=== PATIENT | female | born 1955 ===

== ENCOUNTER 2017-04-27 05:18 | Inpatient (IN) | payer OTHER ==
[~2017-04-27] VITALS: Ht 154.9 cm; Wt 63.5 kg
[2017-04-27] VITALS (16 sets, daily range): BP systolic 106–154; BP diastolic 65–90
[~2017-04-27 05:18] MED LIST: CYCLOBENZAPRINE10 MG ORAL; IBUPROFEN800 M1 PO; LISINOPRIL20 MG ORAL; OMEPRAZOLE20 M3 ORAL
[2017-04-27] MEDS ORDERED: TUMS X-STR300 MG PO (06:22)
[2017-04-27] MEDS ORDERED: Thrombin 5000 units TOPIC ONE (06:39)
[2017-04-27] MEDS ORDERED: Thrombin 5000 units spray kit TOPIC ONE (06:40)
[2017-04-27] MEDS ORDERED: Gelfoam Absorbable 1gm powder pkt TOPIC ONE (06:40)
[2017-04-27] MEDS ORDERED: Bupivacaine w/Epi 0.5% 30ml Vial INJ ONE (06:40)
[2017-04-27] MEDS ORDERED: Bacitracin 50000 Units Vial ONE ×2 (06:41→09:20)
[2017-04-27] MEDS ORDERED: Midazolam 2mg/2ml Inj ONE (07:00)
[2017-04-27] MEDS ORDERED: Zemuron 50mg/5ml Inj IV ONE (07:00)
[2017-04-27] MEDS ORDERED: fentaNYL 100 mcg/2 mL IV ONE (07:00)
[2017-04-27] MEDS ORDERED: Propofol 200mg/20ml IV ONE (07:00)
[2017-04-27] MEDS ORDERED: LR 1000ml ONE (07:00)
[2017-04-27] MEDS ORDERED: ePHEDrine 50mg/ml Inj ONE (07:00)
[2017-04-27] MEDS ORDERED: Lidocaine 1% MPF 10mg/ml 5ml ONE (07:00)
[2017-04-27] MEDS ORDERED: Sodium Chloride 10ml vial INJ ONE (07:00)
--- NOTE | 2017-04-27 07:05 | Pre-Procedure Note/Attestation ---
Pre-Procedure Note/Attestation Complete Prior to Procedure Procedure Narrative: L4-5 Spondylosis with Disc Herniation, for ALIF L4-5 Indications for Procedure Pre-Operative Diagnosis: L4-5 Spondylosis with Disc Herniation Attestation I attest that I discussed the nature of the procedure; its benefits; risks and complications; and alternatives (and the risks and benefits of such alternatives ), prior to the procedure, with the patient (or the patient's legal instruments sales representative). I attest that, if there was a reasonable possibility of needing a blood transfusion, the patient (or the patient's legal instruments sales representative) was given the [facility] standardized written summary, pursuant to the Joce Stewart Blood Safety Act ([place] Health and Safety Code # 1645, as amended). I attest that I re-evaluated the patient just prior to the surgery and that there has been no change in the patient's H&P, except as documented below: LEON GIPSON Apr 27, 2017 07:05
[2017-04-27] MEDS ORDERED: Heparin 5000 units/ml inj ONE (07:35)
[2017-04-27] MEDS ORDERED: LR 1000ml 1,000 ML IVLG SCH (08:09)
[2017-04-27] MEDS ORDERED: LORazepam Inj 2mg/ml 1ml IV PRN (08:15)
[2017-04-27] MEDS ORDERED: DiphenhydrAMINE 50mg/ml Inj IVP PRN ×2 (08:15→09:00)
--- NOTE | 2017-04-27 08:19 | Anethesia Preoperative Eval ---
Anesthesia Pre-op PMH/ROS General Date of Evaluation: Apr 27, 2017 Time of Evaluation: 07:10 Anesthesiologist: Maryellen ASA Score: ASA 2 Mallampati Score Class I : Soft palate, uvula, fauces, pillars visible Class II: Soft palate, uvula, fauces visible Class III: Soft palate, base of uvula visible Class IV: Only hard plate visible Mallampati Classification: Class III Surgeon: Marychuy Diagnosis: Back pain Surgical Procedure: ALIF L4-5 Family History: no anesthesia problems Allergies: Coded Allergies: CORTISONE (Verified Allergy, Severe, 04/24/17) TACHYCARDIA Uncoded Allergies: STEROIDS (Allergy, Severe, 04/24/17) TACHYCARDIA,KEEPS ME AWAKE FOR DAYS Medications: see eMAR Past Medical History Cardiovascular: Reports: HTN, Denies: CAD, [place], valve dz, arrhythmia, other Pulmonary: Denies: asthma, COPD, ANA, other Gastrointestinal/Genitourinary: Reports: GERD, Denies: CRI, ESRD, other Neurologic/Psychiatric: Denies: dementia, CVA, depression/anxiety, TIA, other Endocrine: Denies: DM, hypothyroidism, steroids, other HEENT: Denies: cataract (L), cataract (R), glaucoma, HUGHES (L), HUGHES (R), other Hematology/Immune: Denies: anemia, DVT, bleeding disorder, other Musculoskeletal/Integumentary: Denies: OA, RA, DJD, DDD, edema, other PMH Narrative: HTN, GERD PSxH Narrative: C/S, BTL, knee scope Anesthesia Pre-op Phys. Exam Physician Exam Last Vital Signs Date Time Temp Pulse Resp B/P (MAP) Pulse Ox O2 Delivery O2 Flow Rate FiO2 04/27/17 06:11 97.7 63 20 146/84 98 Room Air Constitutional: NAD Neurologic: CN 2-12 intact Cardiovascular: RRR, no M/R/G Respiratory: CTA Gastrointestinal: S/NT/ND Airway Exam Mallampati Score: Class III MO: full ROM: full Teeth: intact Anesthesia Pre-op A/P Labs WNL Studies Pre-op Studies: EKG - SR, flipped T wave in lateral lead (V6), echo - Nl wall motion and EF (60-65%) Risk Assessment & Plan Assessment: Hypertensive female with abnormal EKG and normal EF and wall motion for ALIF. Plan: GETA, SedLine Status Change Before Surgery: No Pre-Antibiotics Drug: Ancef Given Within 1 Hr of Incision: Yes Time Given: 07:30 ACE DICKERSON M.D. Apr 27, 2017 08:19
--- NOTE | 2017-04-27 08:20 | Immediate Post-Op Evaluation ---
Immediate Post-Op Evalulation Immediate Post-Op Evalulation Procedure: ALIF L4-5 Date of Evaluation: Apr 27, 2017 Time of Evaluation: 09:25 IV Fluids: 1500 Estimated Blood Loss: 70 Urinary Output: 50 Blood Pressure Systolic: 151 Blood Pressure Diastolic: 82 Pulse Rate: 82 Respiratory Rate: 9 O2 Sat by Pulse Oximetry: 98 Temperature (Fahrenheit): 98.0 Pain Score (1-10): 2 Nausea: No Vomiting: No Complications No complication Patient Status: awake, patent, extubated, none Hydration Status: adequate Drug: Ancef Given Within 1 Hr of Incision: Yes Time Given: 07:30 ACE DICKERSON M.D. Apr 27, 2017 08:20
[2017-04-27] MEDS ORDERED: HYDROmorphone 1mg/ml Carpuject SUBQ PRN (09:00)
[2017-04-27] MEDS ORDERED: Naloxone 0.4mg/ml Inj IVP PRN ×2 (09:00)
[2017-04-27] MEDS ORDERED: Norco 7.5mg/325mg tab ORAL PRN ×2 (09:00)
[2017-04-27] MEDS ORDERED: Rate Change PCA 1 Each MISC PRN (09:00)
[2017-04-27] MEDS ORDERED: HYDROmorphone 1mg/ml Carpuject IVP PRN (09:00)
[2017-04-27] MEDS ORDERED: LORazepam 1mg tab ORAL PRN (09:00)
[2017-04-27] MEDS ORDERED: PCA Education Pamphlet MISC ONE (09:00)
[2017-04-27] MEDS ORDERED: Norco 5mg/325mg tab ORAL PRN (09:00)
[2017-04-27] MEDS ORDERED: Acetaminophen 650 MG SUPP RECTAL PRN (09:00)
--- NOTE | 2017-04-27 09:00 | Operative Note - PDOC ---
Operative Note Operative Note Chief Complaint: Low Back pain Pre-op Diagnosis: L4-5 Spondylosis with Disc Herniation Procedure: ALIF L4-5 with internal fixation Post-op Diagnosis: same as pre-op Operative Findings: consistent w/pre-op dx studies Surgeon: Marychuy Bookmaker Map: DENVER Carlos Additional Surgeons: Cuevas - Vascular Access Anesthesiologist: Phillip Anesthesia: general Specimen: yes Complications: none Condition: stable Estimated Blood Loss: minimal Drains: none Implant(s) used?: Yes - Joshua InFix device with LEON Roblero Apr 27, 2017 09:00
[2017-04-27] MEDS: Hydromorphone 0.5mg/0.5ml inj IVP PRN ×2 (09:29→09:48)
[2017-04-27] MEDS ORDERED: Meperidine 50mg/ml Inj(FOR RIGORS ONLY) IVP PRN (09:30)
[2017-04-27] MEDS: PCA HYDROmorphone 1mg/ml 30 ML IV PRN (09:51)
--- NOTE | 2017-04-27 10:42 | Diagnostic Imaging Report ---
Indication: PAIN and bilateral lower findings, intraoperative Technique: Digital intraoperative images Comparison: None Findings: On initial image, needle projects at the level of the anterior aspect of what is presumably the L4-5 disc. Subsequent images document placement of a disc prosthesis at L4-5. Impression: Intraoperative imaging, as described
[2017-04-27] MEDS ORDERED: LR 1000ml 1,000 ML IV SCH (12:00)
[2017-04-27] MEDS: ceFAZolin sod 1 GM in D5W 55 ML IV SCH (14:32)
--- NOTE | 2017-04-27 16:15 | Operative Note - Dictated ---
DATE OF OPERATION: 04/27/2017 SURGEON: Rafael Perrin M.D. EYEGLASS LENS GRINDER: Johanna Crabtree EYEGLASS LENS GRINDER SURGEON VASCULAR APPROACH: Tae Cuevas M.D. ANESTHESIOLOGIST: Joce Fisher M.D. ANESTHESIA: With arterial blood pressure monitoring general endotracheal. PREOPERATIVE DIAGNOSES: Unstable degenerative spondylo at L4-L5 causing left greater than right radiculopathy and with notable instability and 6 mm of anterior slippage of L4 and L5 with evidence on MRI of significant canal stenosis. POSTOPERATIVE DIAGNOSES: Unstable degenerative spondylo at L4-L5 causing left greater than right radiculopathy and with notable instability and 6 mm of anterior slippage of L4 and L5 with evidence on MRI of significant canal stenosis. OPERATIVE PROCEDURE: Left pararectus anterior approach to the lumbar spine with vessel mobilization and retraction by Dr. Cuevas. Using a table fixed frame and reverse tip blades, anterior annulotomy, nuclear diskectomy, partial vertebrectomy, bilateral neural foraminotomy, and micro neurolysis L4-L5, open reduction and internal fixation using a medium InFix cage with 10 mm of height and 3+3 degrees of lordosis. Fusion was with bone protein and autogenous bone harvested during decompression. Image intensifier was used as was Cell-Saver on standby as well as pulse oximetry. The patient was prepped and draped supine on the operating table. Bolster was placed in lumbar area to create normal lordosis. A left pararectus incision was made by Dr. Cuevas, mobilized the rectus and dissected the retroperitoneal space to uncover the anterior spine. Vessels were mobilized and retracted and East-West and North-South Wolf blades were inserted. Center of the disk was marked. An anterior annulotomy was done with a 10-blade. The nuclear disk and cartilaginous endplate was then sequentially removed using larger, smaller, angled, and straight Kerrisons, pituitaries, and curettes. The dissection was carried to the posterior longitudinal ligament and foramen. Detachable distraction plugs which were lordotic were used from 8 to 12 mm to progressively dissect more posteriorly to reach the PLL and the foramen. A medium size implant was chosen with 10 mm of height and 3+3 degrees of lordosis. The patient had a compensated lumbar curve making the right-sided canal somewhat truncated and smaller than the left. Compression side was definitely on the right. The cage was placed to the right of center because of the disparity of the canal. The patient's primary preoperative symptoms were on the left. The left foramen was widely opened during the decompression. Once the cage had been chosen, it was tapped into place, checked, and the side inserts were positioned and then the cage was locked. Bone protein and autogenous bone was then placed between the two endplates. On lateral, there was good reconstitution of height and alignment with good reduction of the spondylo. On AP, the cage was centered somewhat more to the truncated, concave, right side of the curve, but within the outlines of the lateral body. The wound was closed in layers including anterior, posterior, and rectus sheaths, subcutaneous, and skin. Blood loss was estimated to be 100 to 200 mL. The patient was placed in a bulky compression dressing, returned to recovery room in good condition. Rafael Perrin M.D. DR: LILIANE JOB#: [id number] CC: ROSARIO
--- NOTE | 2017-04-27 16:15 | Operative Note - Dictated ---
DATE OF OPERATION: 04/27/2017 VASCULAR SURGEON: Tae Cuevas M.D. SPINE SURGEON: Rafael Perrin M.D. PREOPERATIVE DIAGNOSIS: Degenerative disk disease. POSTOPERATIVE DIAGNOSIS: Degenerative disk disease. PROCEDURE PERFORMED: Anterior retroperitoneal exposure of L4-5 vertebral interspace. INDICATIONS: The patient is a very pleasant woman, who was seen in my office prior to surgery. 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 She denies deep venous thrombosis or bleeding complications in the past. She has been made aware of the need for vertical midline incision, the possibility of vascular injury, possible need for blood transfusion, and deep venous thrombosis were all discussed with her prior to surgery. DESCRIPTION OF FINDINGS: A vertical midline incision was used. A left retroperitoneal approach was used. There was no peritoneal or ureteral violation. There was no vascular injury. Exposure of L4-5 was obtained with retraction of left iliac vessels towards the patient's right. The fluoroscopy used to confirm the appropriate level. On completion, the peritoneum and ureter are intact. Iliac vessels were intact. BLOOD LOSS: Was less than 100 mL. COMPLICATIONS: None. DESCRIPTION OF PROCEDURE: The patient was taken to the operative room, general anesthesia was used. Intravenous antibiotics were given. The patient's abdomen was prepped and draped. An appropriate time-out was taken. A low vertical midline incision was made. The anterior fascia incised longitudinally in the midline. A plane identified posterior to the left rectus abdominis and developed posterolaterally towards the patient's left. The retroperitoneal space entered below the arcuate line. The peritoneum and ureter mobilized towards the patient's right exposing the left common iliac artery and vein. Overlying lymphatics were ligated with vascular clips. The iliolumbar vein was identified and ligated with vascular clips and divided and this allowed us to retract the left iliac vein and artery towards the patient's right and exposed the anterior surface of the L4-L5. The Omni retractor set in place. Fluoroscopy used to confirmed the appropriately level. An instrumentation was performed at L4-L5 and dictated separately. On completion, the peritoneum and ureter were intact. The iliac vessels were intact. Anterior fascia was then closed using #1 PDS suture in running fashion. Skin and subcutaneous tissue was closed using 3-0 Vicryl and 4-0 Monocryl running subcuticular closure technique. Estimated blood loss less than 100 mL. Complications none. Tae Cuevas M.D. DR: EULALIA JOB#: [id number] CC:
--- NOTE | 2017-04-27 17:19 | General Progress Note ---
Assessment/Plan Assessment/Plan L4-5 Spondylosis with Disc Herniation ALIF L4-5 with internal fixation Lumbar disc disease PLAN 1. incentive spirometry 2. SCD 3. PT evaluation and therapy 4. Hydration 5. Pain management 6. discharge once stable with outpatient follow up Subjective Allergies: Coded Allergies: CORTISONE (Verified Allergy, Severe, 04/24/17) TACHYCARDIA Uncoded Allergies: STEROIDS (Allergy, Severe, 04/24/17) TACHYCARDIA,KEEPS ME AWAKE FOR DAYS Subjective post op care noted Objective Last 24 Hour Vital Signs Date Time Temp Pulse Resp B/P (MAP) Pulse Ox O2 Delivery O2 Flow Rate FiO2 04/27/17 16:18 18 04/27/17 16:00 97.4 57 18 106/66 100 Nasal Cannula 3.0 04/27/17 12:30 20 04/27/17 12:30 97.5 67 20 106/65 97 Nasal Cannula 3.0 04/27/17 12:00 97.5 77 20 131/73 100 Nasal Cannula 3.0 04/27/17 12:00 22 04/27/17 11:30 22 04/27/17 11:30 97.8 78 18 136/75 100 Nasal Cannula 3.0 04/27/17 10:47 97.0 04/27/17 10:45 97.0 64 18 125/73 99 Nasal Cannula 3.0 04/27/17 10:36 61 18 131/73 99 Nasal Cannula 3.0 04/27/17 10:18 20 04/27/17 10:11 61 18 119/73 99 Simple Mask 8.0 04/27/17 10:03 20 04/27/17 09:59 98.0 04/27/17 09:59 98.0 04/27/17 09:57 68 18 122/90 99 Simple Mask 8.0 04/27/17 09:51 70 18 138/80 99 Simple Mask 8.0 04/27/17 09:48 70 18 150/80 99 Simple Mask 8.0 04/27/17 09:48 20 04/27/17 09:29 79 18 147/79 99 Simple Mask 8.0 04/27/17 09:25 79 18 147/79 99 Simple Mask 8.0 04/27/17 09:20 76 18 154/82 99 Simple Mask 8.0 04/27/17 09:17 82 9 98 04/27/17 09:15 98.0 82 18 151/89 99 Simple Mask 8.0 04/27/17 06:11 97.7 63 20 146/84 98 Room Air Intake and Output 04/27/17 04/28/17 19:00 07:00 Intake Total 1500 ml Output Total 520 ml Balance 980 ml Intake IV Total 1500 ml Output Urine Total 450 ml Estimated Blood Loss 70 ml Height (Feet): 5 Height (Inches): 1.00 Weight (Pounds): 140 Objective WDWN NAD clear breath sounds bilaterally without rhonchi or wheeze [id number] without MRG NABS nontender no HSM no CCE nonfocal PALAK LEMON Apr 27, 2017 17:19
[2017-04-27] MEDS: PCA shift volume MISC SCH (19:39)
[2017-04-28] VITALS: BP 109/56
[2017-04-28 04:00] VITALS: BP 102/57
[2017-04-28] MEDS: PCA shift volume MISC SCH ×2 (07:00→19:23)
[2017-04-28] MEDS: ceFAZolin sod 1 GM in D5W 55 ML IV SCH ×3 (07:01)
--- NOTE | 2017-04-28 07:56 | General Progress Note ---
Assessment/Plan Assessment/Plan L4-5 Spondylosis with Disc Herniation ALIF L4-5 with internal fixation Lumbar disc disease PLAN 1. incentive spirometry 2. SCD; oneill as needed 3. PT evaluation and therapy 4. Hydration and monitor PO per spine 5. Pain management 6. discharge once stable with outpatient follow up impression, plan, and exam edited and reviewed in detail care discussed with RN Subjective Allergies: Coded Allergies: CORTISONE (Verified Allergy, Severe, 04/24/17) TACHYCARDIA Uncoded Allergies: STEROIDS (Allergy, Severe, 04/24/17) TACHYCARDIA,KEEPS ME AWAKE FOR DAYS Subjective post op care noted urinary retention Objective Last 24 Hour Vital Signs Date Time Temp Pulse Resp B/P (MAP) Pulse Ox O2 Delivery O2 Flow Rate FiO2 04/28/17 04:00 18 04/28/17 04:00 99.7 88 18 102/57 99 Nasal Cannula 3.0 04/28/17 00:00 18 04/28/17 00:00 99.7 82 18 109/56 99 Nasal Cannula 3.0 04/27/17 20:00 18 04/27/17 20:00 97.3 75 20 141/76 99 Nasal Cannula 3.0 04/27/17 16:18 18 04/27/17 16:00 97.4 57 18 106/66 100 Nasal Cannula 3.0 04/27/17 12:30 20 04/27/17 12:30 97.5 67 20 106/65 97 Nasal Cannula 3.0 04/27/17 12:00 97.5 77 20 131/73 100 Nasal Cannula 3.0 04/27/17 12:00 22 04/27/17 11:30 22 04/27/17 11:30 97.8 78 18 136/75 100 Nasal Cannula 3.0 04/27/17 10:47 97.0 04/27/17 10:45 97.0 64 18 125/73 99 Nasal Cannula 3.0 04/27/17 10:36 61 18 131/73 99 Nasal Cannula 3.0 04/27/17 10:18 20 04/27/17 10:11 61 18 119/73 99 Simple Mask 8.0 04/27/17 10:03 20 04/27/17 09:59 98.0 04/27/17 09:59 98.0 04/27/17 09:57 68 18 122/90 99 Simple Mask 8.0 04/27/17 09:51 70 18 138/80 99 Simple Mask 8.0 04/27/17 09:48 70 18 150/80 99 Simple Mask 8.0 04/27/17 09:48 20 04/27/17 09:29 79 18 147/79 99 Simple Mask 8.0 04/27/17 09:25 79 18 147/79 99 Simple Mask 8.0 04/27/17 09:20 76 18 154/82 99 Simple Mask 8.0 04/27/17 09:17 82 9 98 04/27/17 09:15 98.0 82 18 151/89 99 Simple Mask 8.0 Height (Feet): 5 Height (Inches): 1.00 Weight (Pounds): 140 Objective WDWN NAD clear breath sounds bilaterally without rhonchi or wheeze [id number] without MRG NABS nontender no HSM no CCE nonfocal PALAK LEMON Apr 28, 2017 07:56
[2017-04-28 08:00] VITALS: BP 101/53
[2017-04-28] MEDS: Lisinopril 20mg tab ORAL SCH (09:00)
[2017-04-28] MEDS: PCA HYDROmorphone 1mg/ml 30 ML IV PRN (09:46)
--- NOTE | 2017-04-28 10:51 | 48 Hour Post Anesthesia Eval ---
Post Anesthesia Evaluation Procedure: ALIF L4-5 Date of Evaluation: Apr 28, 2017 Time of Evaluation: 10:50 Blood Pressure Systolic: 101 0: 53 Pulse Rate: 73 Respiratory Rate: 18 Temperature (Fahrenheit): 97.8 O2 Sat by Pulse Oximetry: 98 Airway: patent Nausea: No Vomiting: No Pain Intensity: 4 Hydration Status: adequate Cardiopulmonary Status: stable Mental Status/LOC: patient returned to baseline Follow-up Care/Observations: As per surgery Post-Anesthesia Complications: No anesthetic complication Follow-up care needed: N/A ACE DICKERSON M.D. Apr 28, 2017 10:51
[2017-04-28 12:00] VITALS: BP 116/71
--- NOTE | 2017-04-28 15:51 | General Surgery Progress Note ---
General Surgery-Progress Note Subjective Procedure Performed ALIF L4-5 with internal fixation Symptoms: improved Objective Last 24 Hour Vital Signs Date Time Temp Pulse Resp B/P (MAP) Pulse Ox O2 Delivery O2 Flow Rate FiO2 04/28/17 12:00 97.9 78 18 116/71 98 Nasal Cannula 3.0 04/28/17 12:00 18 04/28/17 10:51 73 18 98 04/28/17 09:30 18 04/28/17 09:00 101/53 04/28/17 08:00 97.8 73 18 101/53 98 Nasal Cannula 3.0 04/28/17 08:00 18 04/28/17 04:00 18 04/28/17 04:00 99.7 88 18 102/57 99 Nasal Cannula 3.0 04/28/17 00:00 18 04/28/17 00:00 99.7 82 18 109/56 99 Nasal Cannula 3.0 04/27/17 20:00 18 04/27/17 20:00 97.3 75 20 141/76 99 Nasal Cannula 3.0 04/27/17 16:18 18 04/27/17 16:00 97.4 57 18 106/66 100 Nasal Cannula 3.0 I&O Intake and Output 04/28/17 04/29/17 19:00 07:00 Intake Total 225 ml Balance 225 ml Intake IV Total 225 ml Dressing: dry Wound: clean Drains: none Abdomen: soft, flat Additional Comments 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 She is to ambulate with PT today. NPO for present (no lower GI gas). LEON Doyle Apr 28, 2017 15:51
[2017-04-28 16:00] VITALS: BP 94/50
[2017-04-28 20:08] VITALS: BP 111/61
[2017-04-29] VITALS: BP 119/68
[2017-04-29 04:00] VITALS: BP 106/60
[2017-04-29] MEDS: PCA shift volume MISC SCH ×2 (07:21→19:09)
[2017-04-29] MEDS: Lisinopril 20mg tab ORAL SCH (08:57)
[2017-04-29 09:00] VITALS: BP 123/72
[2017-04-29] MEDS ORDERED: Norco 5mg/325mg tab ORAL PRN (10:00)
[2017-04-29] MEDS ORDERED: Rate Change PCA 1 Each MISC PRN (10:00)
[2017-04-29] MEDS ORDERED: Naloxone 0.4mg/ml Inj IVP PRN ×2 (10:00)
[2017-04-29] MEDS ORDERED: HYDROmorphone 1mg/ml Carpuject IVP PRN ×2 (10:00)
[2017-04-29] MEDS ORDERED: HYDROmorphone 1mg/ml Carpuject SUBQ PRN (10:00)
[2017-04-29] MEDS ORDERED: PCA HYDROmorphone 1mg/ml 30 ML IV PRN (10:00)
[2017-04-29] MEDS ORDERED: Norco 7.5mg/325mg tab ORAL PRN ×2 (10:00)
[2017-04-29 12:35] VITALS: BP 98/57
--- NOTE | 2017-04-29 13:59 | General Progress Note ---
Assessment/Plan Assessment/Plan L4-5 Spondylosis with Disc Herniation ALIF L4-5 with internal fixation Lumbar disc disease urinary retention PLAN 1. incentive spirometry; start clears 2. SCD; oneill as needed 3. PT evaluation and therapy 4. Hydration and monitor PO per spine 5. Pain management 6. discharge once stable with outpatient follow up impression, plan, and exam edited and reviewed in detail care discussed with RN Subjective Allergies: Coded Allergies: CORTISONE (Verified Allergy, Severe, 04/24/17) TACHYCARDIA Uncoded Allergies: STEROIDS (Allergy, Severe, 04/24/17) TACHYCARDIA,KEEPS ME AWAKE FOR DAYS Subjective post op care noted urinary retention d/w spine Objective Last 24 Hour Vital Signs Date Time Temp Pulse Resp B/P (MAP) Pulse Ox O2 Delivery O2 Flow Rate FiO2 04/29/17 12:35 98.5 79 18 98/57 98 Nasal Cannula 2.0 04/29/17 11:59 18 04/29/17 11:09 97.5 04/29/17 10:39 18 04/29/17 10:39 18 04/29/17 09:55 97.5 04/29/17 09:00 97.5 79 18 123/72 99 Nasal Cannula 2.0 04/29/17 08:57 123/72 04/29/17 08:00 18 04/29/17 04:00 18 04/29/17 04:00 97.4 88 18 106/60 98 Nasal Cannula 2.0 04/29/17 00:00 18 04/29/17 00:00 98.8 80 18 119/68 97 Nasal Cannula 2.0 04/28/17 20:08 97.8 75 18 111/61 97 Nasal Cannula 2.0 04/28/17 20:00 18 04/28/17 16:00 18 04/28/17 16:00 98.8 75 18 94/50 98 Nasal Cannula 3.0 Intake and Output 04/29/17 04/30/17 19:00 07:00 Intake Total 375 ml Balance 375 ml Intake IV Total 375 ml Height (Feet): 5 Height (Inches): 1.00 Weight (Pounds): 140 Objective WDWN NAD clear breath sounds bilaterally without rhonchi or wheeze [id number] without MRG NABS nontender no HSM no CCE nonfocal PALAK LEMON Apr 29, 2017 13:59
[2017-04-29 16:00] VITALS: BP 123/72
[2017-04-29 20:00] VITALS: BP 120/60
[2017-04-30] VITALS (7 sets, daily range): BP systolic 124–154; BP diastolic 59–87
[2017-04-30] MEDS: PCA shift volume MISC SCH (07:00)
[2017-04-30] MEDS: Lisinopril 20mg tab ORAL SCH (08:21)
--- NOTE | 2017-04-30 09:03 | General Progress Note ---
Assessment/Plan Assessment/Plan L4-5 Spondylosis with Disc Herniation ALIF L4-5 with internal fixation Lumbar disc disease urinary retention nausea and vomiting PLAN 1. incentive spirometry; start clears 2. SCD; oneill as needed 3. PT evaluation and therapy 4. Hydration and monitor PO per spine- on clears 5. Pain management; encourage ambulation 6. discharge once stable with outpatient follow up impression, plan, and exam edited and reviewed in detail care discussed with RN Subjective Allergies: Coded Allergies: CORTISONE (Verified Allergy, Severe, 04/24/17) TACHYCARDIA Uncoded Allergies: STEROIDS (Allergy, Severe, 04/24/17) TACHYCARDIA,KEEPS ME AWAKE FOR DAYS Subjective post op care noted started on clears still with some nausea d/w spine Objective Last 24 Hour Vital Signs Date Time Temp Pulse Resp B/P (MAP) Pulse Ox O2 Delivery O2 Flow Rate FiO2 04/30/17 08:21 142/76 04/30/17 04:00 18 04/30/17 04:00 98.2 88 18 149/81 99 Nasal Cannula 2.0 04/30/17 00:00 98.1 80 18 124/59 98 Nasal Cannula 2.0 04/30/17 00:00 18 04/29/17 20:00 18 04/29/17 20:00 97.9 77 18 120/60 99 Nasal Cannula 2.0 04/29/17 16:00 97.5 79 18 123/72 99 Nasal Cannula 2.0 04/29/17 15:59 18 04/29/17 12:35 98.5 79 18 98/57 98 Nasal Cannula 2.0 04/29/17 11:59 18 04/29/17 11:09 97.5 04/29/17 10:39 18 04/29/17 10:39 18 04/29/17 09:55 97.5 Height (Feet): 5 Height (Inches): 1.00 Weight (Pounds): 140 Objective WDWN NAD clear breath sounds bilaterally without rhonchi or wheeze [id number] without MRG NABS nontender no HSM no CCE nonfocal PALAK LEMON Apr 30, 2017 09:03
[2017-04-30] MEDS ORDERED: HYDROmorphone 1mg/ml Carpuject IVP PRN (11:00)
[2017-04-30] MEDS ORDERED: Norco 5mg/325mg tab ORAL PRN (11:00)
[2017-04-30] MEDS ORDERED: Norco 7.5mg/325mg tab ORAL PRN (11:00)
[2017-04-30] MEDS ORDERED: HYDROmorphone 1mg/ml Carpuject SUBQ PRN (11:00)
--- NOTE | 2017-04-30 13:32 | General Surgery Progress Note ---
General Surgery-Progress Note Subjective Procedure Performed ALIF L4-5 with internal fixation Symptoms: improved Objective Last 24 Hour Vital Signs Date Time Temp Pulse Resp B/P (MAP) Pulse Ox O2 Delivery O2 Flow Rate FiO2 04/30/17 12:00 98.1 62 16 140/75 99 Room Air 04/30/17 10:57 18 04/30/17 08:21 142/76 04/30/17 08:00 98.2 84 18 142/76 96 Room Air 04/30/17 04:00 18 04/30/17 04:00 98.2 88 18 149/81 99 Nasal Cannula 2.0 04/30/17 00:00 98.1 80 18 124/59 98 Nasal Cannula 2.0 04/30/17 00:00 18 04/29/17 20:00 18 04/29/17 20:00 97.9 77 18 120/60 99 Nasal Cannula 2.0 04/29/17 16:00 97.5 79 18 123/72 99 Nasal Cannula 2.0 04/29/17 15:59 18 Dressing: dry Wound: clean Drains: none Additional Comments Patient having some nausea since starting clear liquid diet.Wants to eat.D/C STRETCHER AND DRIER. Wound clean and dry. Leg 5/[address] Di perez. LEON GIPSON Apr 30, 2017 13:32
[2017-04-30] MEDS: Norco 7.5mg/325mg tab ORAL PRN (19:34)
[2017-04-30] MEDS ORDERED: Miralax 17gm pkt ORAL PRN (23:00)
[2017-05-01 04:00] VITALS: BP 136/90
[2017-05-01] MEDS: Norco 7.5mg/325mg tab ORAL PRN ×2 (04:19→13:26)
[2017-05-01 08:00] VITALS: BP 158/89
--- NOTE | 2017-05-01 08:15 | General Progress Note ---
Assessment/Plan Assessment/Plan L4-5 Spondylosis with Disc Herniation ALIF L4-5 with internal fixation Lumbar disc disease urinary retention nausea and vomiting PLAN 1. incentive spirometry; advance diet as able 2. SCD; oneill as needed 3. PT evaluation and therapy 4. Hydration and monitor 5. Pain management; encourage ambulation 6. discharge once stable impression, plan, and exam edited and reviewed in detail care discussed with RN Subjective Allergies: Coded Allergies: CORTISONE (Verified Allergy, Severe, 04/24/17) TACHYCARDIA Uncoded Allergies: STEROIDS (Allergy, Severe, 04/24/17) TACHYCARDIA,KEEPS ME AWAKE FOR DAYS Subjective post op care noted started on clears still with some nausea and vomiting d/w spine Objective Last 24 Hour Vital Signs Date Time Temp Pulse Resp B/P (MAP) Pulse Ox O2 Delivery O2 Flow Rate FiO2 05/01/17 04:00 97.9 73 16 136/90 99 Room Air 04/30/17 23:51 98.2 73 16 153/82 96 Room Air 04/30/17 20:00 97.3 69 18 154/87 97 Room Air 04/30/17 16:00 97.7 65 18 138/79 99 Room Air 04/30/17 15:10 98.1 04/30/17 12:00 98.1 62 16 140/75 99 Room Air 04/30/17 10:57 18 04/30/17 08:21 142/76 Height (Feet): 5 Height (Inches): 1.00 Weight (Pounds): 140 Objective WDWN NAD clear breath sounds bilaterally without rhonchi or wheeze [id number] without MRG NABS nontender no HSM no CCE nonfocal PALAK LEMON May 01, 2017 08:15
[2017-05-01] MEDS: Lisinopril 20mg tab ORAL SCH (08:35)
[2017-05-01] MEDS ORDERED: Docusate 100mg cap ORAL SCH (09:00)
[2017-05-01] MEDS ORDERED: HYDROmorphone 1mg/ml Carpuject SUBQ PRN (10:00)
[2017-05-01] MEDS ORDERED: Norco 5mg/325mg tab ORAL PRN (10:00)
[2017-05-01] MEDS ORDERED: Norco 7.5mg/325mg tab ORAL PRN ×2 (10:00)
[2017-05-01] MEDS ORDERED: HYDROmorphone 1mg/ml Carpuject IVP PRN (10:00)
[2017-05-01 12:00] VITALS: BP 156/89
--- NOTE | 2017-05-04 08:56 | Discharge Summary ---
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 patient was admitted for elective surgery Consultations dr Sevilla - IM Procedures s/p 04/[address] Marychuy PATEL L4-5 with internal fixation s/p 04/[address] Cuevas Anterior retroperitoneal exposure of L4-5 vertebral interspace. 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 I was not involved in the patient management Shirley Taylor NP ([place]) May 04, 2017 08:56
== END 2017-05-01 16:01 | disposition home or self-care (01) | DRG 460 ==
LOC: SDSOVERFLO 05:18 → 3E 11:30
PROC: 0ST20ZZ Resection of Lumbar Vertebral Disc, Open Approach (ICD-10-PCS; principal; 2017-04-27 07:00)
PROC: 0SG00A0 Fusion of Lumbar Vertebral Joint with Interbody Fusion Device, Anterior Approach, Anterior Column, Open Approach (ICD-10-PCS; principal; 2017-04-27 07:00)
DX: M51.16 Intervertebral disc disorders with radiculopathy, lumbar region (principal); I10 Essential (primary) hypertension; M47.896 Other spondylosis, lumbar region; M53.2X6 Spinal instabilities, lumbar region; R33.9 Retention of urine, unspecified; R11.2 Nausea with vomiting, unspecified
CPT/HCPCS: 36415; 72020; 76001; 86850; 86900; 86901; 87081; 94003; 94150; J2250; J2405